=== PATIENT | male | born 1995 | race Caucasian/White ===

== ENCOUNTER 2017-02-26 14:07 | Emergency (ER) | payer OTHER ==
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
[~2017-02-26 14:07] MED LIST: AMOXICILLIN500 M1 PO; AMOXICILLIN875 MG PO; AZITHROMYCIN250 MG PO; EC-NAPROSYN500 MG PO; FLEXERIL PO; IBUPROFEN PO; KEFLEX PO; NAPROXEN PO; NO MEDICATIONS; NORFLEX100 M1 PO; TYLENOL #3 PO; VOLTAREN75 MG PO; ZOFRAN ODT4 MG/UDTAB SL
== END 2017-02-26 16:07 | disposition home or self-care (01) ==
LOC: SED 14:07
DX: S09.90XA Unspecified injury of head, initial encounter (principal); R11.2 Nausea with vomiting, unspecified; F17.210 Nicotine dependence, cigarettes, uncomplicated; V43.52XA Car driver injured in collision with other type car in traffic accident, initial encounter
CPT/HCPCS: 70450; 72125; 99285